=== PATIENT | male | born 1980 | race Caucasian/White ===

== ENCOUNTER 2016-07-19 20:10 | Emergency (ER) | payer OTHER ==
[~2016-07-19] VITALS: Ht 195.6 cm; Wt 113.6 kg
[2016-07-19] MEDS ORDERED: CITA20TA9 PO (20:14)
[2016-07-19 22:00] VITALS: BP 134/77
[2016-07-19] MEDS ORDERED: HYDROCODONE/ACETAMINOPHEN 5-325 MG TABLET PO ONE (22:00)
[2016-07-19] MEDS ORDERED: BACITRACIN 0.9 GM PACKET OINTMENT TP ONE (22:00)
[2016-07-19] MEDS ORDERED: POVIDONE-IODINE 10% 15 ML SOLUTION UD TP ONE (22:15)
[2016-07-19] MEDS ORDERED: LIDOCAINE HCL BUFFERED 1% 20 ML VIAL INJ ONE (22:15)
== END 2016-07-19 23:12 | disposition home or self-care (01) ==
LOC: EMS 20:13
DX: S61.412A Laceration without foreign body of left hand, initial encounter (principal); F32.9 Major depressive disorder, single episode, unspecified; Z88.1 Allergy status to other antibiotic agents; W45.8XXA Other foreign body or object entering through skin, initial encounter; Y93.89 Activity, other specified; Y92.9 Unspecified place or not applicable; Y99.9 Unspecified external cause status
CPT/HCPCS: 12001; 99283; J3490